=== PATIENT | female | born 1985 | race Caucasian/White ===

== ENCOUNTER 2017-12-12 15:23 | Emergency (ER) | payer OTHER, SELFPAY ==
[2017-12-12 15:32] VITALS: BP 152/92; PULSE 101; RESP 18; TEMP 37.2; O2SAT 99; BMI 33.7
--- NOTE | 2017-12-12 15:57 | ED.FEMALEGU ---
HPI - Female Genitourinary <COLLEEN Martinez - Last Filed: 12/12/17 22:44> General Chief complaint: Vaginal Bleeding Stated complaint: HEAVY VAG BLEEDING, DIZZY Time Seen by Provider: 12/12/17 15:56 History of Present Illness HPI Narrative: 32-year-old female here for complaint of having heavy vaginal bleeding consistently for the last 3 months. She was seen by her primary care provider for this month ago and was placed on a oral control pills jenny. She states that she has a copper IUD that has been in place for the last 3 years. She was also seen down in the emergency room in [place] where she states she had a normal ultrasound that showed good location of the IUD. She was treated with short course of methyl progesterone. She states that neither of the control tablets have helped her at all. She does report having increased bleeding over the last 5 days. She states she has had a couple of twinges of pain into her pelvic region over the past couple of days however no constant pain no cramping. She states she has passed a few clots over the past few days. She states that she is going through approximately 8 tampons a day. Complaint: vaginal bleeding Related Data Home Medications Medication Instructions Recorded Confirmed ibuprofen 400 mg PO Q4-6H PRN 12/12/17 12/12/17 medroxyprogesterone 5 mg PO DAILY 12/12/17 12/12/17 Previous Rx's Medication Instructions Recorded naproxen 500 mg PO BID #20 tab 12/12/17 doxycycline monohydrate 100 mg 100 mg PO .COMPLEX #22 cap 12/13/17 capsule norgestimate-ethinyl estradiol 1 tab PO DAILY #28 tab 12/13/17 0.18 mg/0.215mg/0.25mg-35 mcg(28)tablet Allergies Allergy/AdvReac Type Severity Reaction Status Date / Time No Known Drug Allergies Allergy Verified 12/12/17 15:38 Review of Systems <COLLEEN Martinez - Last Filed: 12/12/17 22:44> Constitutional Denies chills, Denies fever(s), Denies lethargy and Denies weakness Eyes Denies change in vision, Denies eye discharge, Denies irritation and Denies loss of vision ENT Ears, Nose, Mouth, and Throat: Denies change in voice, Denies neck pain and Denies sore throat Cardiovascular Denies chest pain, Denies irregular heart rhythm, Denies lightheadedness, Denies palpitations, Denies dyspnea, Denies dyspnea on exertion and Denies orthopnea Respiratory Denies cough, Denies dyspnea, Denies dyspnea on exertion and Denies wheezing Gastrointestinal Gastrointestinal: Denies abdominal pain, Denies change in bowel habits, Denies diarrhea, Denies nausea and Denies vomiting Genitourinary Reports abnormal vaginal bleeding Musculoskeletal Denies neck pain Integumentary/Breasts Denies pruritus, Denies erythema, Denies rash and Denies wounds Neurologic Denies confusion, Denies loss of vision and Denies weakness Psychiatric Denies anxiety, Denies confusion, Denies depression, Denies homicidal ideation and Denies suicidal ideation Endocrine Denies palpitations Hematologic/Lymphatic Denies easy bruising Allergic/Immunologic Denies wheezing Exam <COLLEEN Martinez - Last Filed: 12/12/17 22:44> Initial Vital Signs Initial Vital Signs: Vital Signs Temperature 98.9 F 12/12/17 15:32 Pulse Rate 101 H 12/12/17 15:32 Respiratory Rate 18 12/12/17 15:32 Blood Pressure 152/92 H 12/12/17 15:32 Pulse Oximetry 99 12/12/17 15:32 Const General: cooperative and well developed Nutritional Appearance: well nourished Orientation: alert, awake, oriented x3 and not confused HENMN Mouth: oral mucosae normal and moist mucous membranes Eyes Conjunctivae: conjunctivae normal Sclera: sclerae normal Pupils: PERRL EOM: EOM intact bilaterally Resp Effort & Inspection: normal respiratory effort, able to speak in complete sentences, no respiratory distress and no use of accessory muscles Auscultation: clear to auscultation bilaterally, no rales, no rhonchi and no wheezes Cardio Rate: regular rate Rhythm: regular rhythm Heart Sounds: no click, no gallops, no murmurs and no rubs External Female Exam: external appearance normal Speculum Exam - Vagina: normal appearance of the vagina, no foreign bodies, vaginal bleeding and no masses Speculum Exam - Cervix: closed cervix and abnormal cervical discharge bloody OB/External & Speculum: no foreign bodies and vaginal bleeding Skin General: no rashes or lesions noted, No jaundice and No petechiae Neuro General: alert, oriented x3, gait normal and no focal motor deficits Speech: speech normal <Gina Sheehan DO - Last Filed: 12/16/17 04:51> Initial Vital Signs Initial Vital Signs: Vital Signs Temperature 98.9 F 12/12/17 15:32 Pulse Rate 101 H 12/12/17 15:32 Respiratory Rate 18 12/12/17 15:32 Blood Pressure 152/92 H 12/12/17 15:32 Pulse Oximetry 99 12/12/17 15:32 Course <COLLEEN Martinez - Last Filed: 12/12/17 22:44> Orders Ordered: ED Orders 12/12/17 16:17 US pelvic complete Stat 12/12/17 16:28 Complete Blood Count AUTO DIFF Stat Comprehensive Metabolic Panel Stat 12/12/17 16:35 Urine Microscopic Stat 12/12/17 17:22 XR pelvis 1-2V Stat Vital Signs - 8 hr 12/12/17 15:32 12/12/17 18:15 Temperature 98.9 F Pulse Rate 101 H 103 H Respiratory Rate 18 20 Blood Pressure 152/92 H Blood Pressure [Left Arm] 141/67 H Pulse Oximetry 99 99 <Gina Sheehan DO - Last Filed: 12/16/17 04:51> Orders Ordered: ED Orders 12/12/17 16:17 US pelvic complete Stat 12/12/17 16:28 Complete Blood Count AUTO DIFF Stat Comprehensive Metabolic Panel Stat 12/12/17 16:35 Urine Microscopic Stat 12/12/17 17:22 XR pelvis 1-2V Stat Vital Signs - 8 hr 12/12/17 15:32 12/12/17 18:15 Temperature 98.9 F Pulse Rate 101 H 103 H Respiratory Rate 18 20 Blood Pressure 152/92 H Blood Pressure [Left Arm] 141/67 H Pulse Oximetry 99 99 MDM - Female Genitourinary <COLLEEN Martinez - Last Filed: 12/12/17 22:44> Lab Data Result diagrams: 12/12/17 16:28 12/12/17 16:28 Lab Results 12/12/17 12/12/17 12/12/17 Range/Units 16:28 16:28 16:35 WBC 7.9 (4.5-11.0) X10^3/uL RBC 4.00 (4.0-5.2) X10^6/uL Hgb 11.3 L (12.0-16.0) g/dL Hct 33.8 L (36-46) % MCV 84.6 (80-100) fL MCH 28.3 (26-34) PG MCHC 33.4 (30-36) % RDW 14.6 (11.6-14.8) % Plt Count 244 (150-400) X10^3/uL Neut % (Auto) 67.0 (50-75) % Lymph % (Auto) 25.0 (25-40) % [place] % (Auto) 6.4 (3-14) % Eos % (Auto) 1.1 L (2-4) % Baso % (Auto) 0.5 (0-2) % Neut # (Auto) 5300 (0789-3648) /uL Sodium 139 (137-145) mmol/L Potassium 3.9 (3.4-5.1) mmol/L Chloride 106 (98-107) mmol/L Carbon Dioxide 23 (22-32) mmol/L BUN 14 (7-17) mg/dL Creatinine 0.60 (0.52-1.04) mg/dL Estimated GFR > 60.0 (>60) mL/min BUN/Creatinine Ratio 23.3 H (6-22) Glucose 108 H (70-100) mg/dL Calcium 9.1 (8.4-10.2) mg/dL Total Bilirubin 0.2 (0.2-1.3) mg/dL AST 15 (14-36) IU/L ALT 18 (9-52) IU/L Alkaline Phosphatase 65 (38-126) U/L Total Protein 7.0 (6.3-8.2) g/dL Albumin 4.1 (3.5-5.0) g/dL Globulin 2.9 (1.7-4.1) g/dL Albumin/Globulin Ratio 1.4 (1.0-2.8) Urine RBC 1-5/hpf (0-5/HPF) Urine WBC None seen (0-5/HPF) Ur Squamous Epith Cells 0-1 /hpf Urine Bacteria None seen (None) Ur Culture Indicated? Cult not indicated Micro UA Comment Not Reportable Imaging Data pelvic US: Radiologist's impression: PROCEDURE: US PELVIC COMPLETE INDICATIONS: Three months of vaginal bleeding. ? IUD location. TECHNIQUE: Real-time scanning was performed of the pelvic organs, with image documentation. Additional endovaginal scanning was necessary due to incomplete visualization of the adnexal and endometrial structures by transabdominal scanning. COMPARISON: None. FINDINGS: Transabdominal scanning: Limited scanning through the kidneys shows no hydronephrosis. No pathologic free abdominal or pelvic fluid. Endovaginal scanning: Uterus: Uterus is anteverted measuring 9.1 x 4.7 x 5.8 cm. The endometrium measures 6 mm in combined thickness. Ovaries: Ovaries are seen on transabdominal probe orally and demonstrated normal in size and echotexture. The right ovary measures 3.8 x 2.8 x 2.6 cm. Left ovary measures 3.0 x 1.7 x 2.5 cm. IMPRESSION: 1. No IUD is identified on ultrasound. 2. No ultrasound findings to explain vaginal bleeding. 3. Normal ovaries. Dictated by: Candy Goodson M.D. on 12/12/2017 at 17:25 Approved by: Candy Goodson M.D. on 12/12/2017 at 17:28 MDM Narrative Medical decision making narrative: Pelvic ultrasound was obtained and was negative for any acute findings. No IUD was seen on ultrasound. On pelvic exam no IUD strings were appreciated. Slight amount of bleeding was seen on pelvic exam. CBC shows slight anemia on her H&H otherwise were unremarkable. Urinalysis was negative for urinary tract infection or . Pelvis x-ray was obtained and iud was unable to be seen on the x-ray. Discussed case with Dr. Chaves weigh tank operator whose office will follow up with her in the next few days. Patient to call the office tomorrow morning to schedule follow-up appointment. Use naproxen for discomfort and also to help with bleeding. Return emergency room for any worsening symptoms. <Gina Sheehan, DO - Last Filed: 12/16/17 04:51> Lab Data Lab Results 12/12/17 12/12/17 12/12/17 Range/Units 16:28 16:28 16:35 WBC 7.9 (4.5-11.0) X10^3/uL RBC 4.00 (4.0-5.2) X10^6/uL Hgb 11.3 L (12.0-16.0) g/dL Hct 33.8 L (36-46) % MCV 84.6 (80-100) fL MCH 28.3 (26-34) PG MCHC 33.4 (30-36) % RDW 14.6 (11.6-14.8) % Plt Count 244 (150-400) X10^3/uL Neut % (Auto) 67.0 (50-75) % Lymph % (Auto) 25.0 (25-40) % [place] % (Auto) 6.4 (3-14) % Eos % (Auto) 1.1 L (2-4) % Baso % (Auto) 0.5 (0-2) % Neut # (Auto) 5300 (8401-0585) /uL Sodium 139 (137-145) mmol/L Potassium 3.9 (3.4-5.1) mmol/L Chloride 106 (98-107) mmol/L Carbon Dioxide 23 (22-32) mmol/L BUN 14 (7-17) mg/dL Creatinine 0.60 (0.52-1.04) mg/dL Estimated GFR > 60.0 (>60) mL/min BUN/Creatinine Ratio 23.3 H (6-22) Glucose 108 H (70-100) mg/dL Calcium 9.1 (8.4-10.2) mg/dL Total Bilirubin 0.2 (0.2-1.3) mg/dL AST 15 (14-36) IU/L ALT 18 (9-52) IU/L Alkaline Phosphatase 65 (38-126) U/L Total Protein 7.0 (6.3-8.2) g/dL Albumin 4.1 (3.5-5.0) g/dL Globulin 2.9 (1.7-4.1) g/dL Albumin/Globulin Ratio 1.4 (1.0-2.8) Urine RBC 1-5/hpf (0-5/HPF) Urine WBC None seen (0-5/HPF) Ur Squamous Epith Cells 0-1 /hpf Urine Bacteria None seen (None) Ur Culture Indicated? Cult not indicated Micro UA Comment Not Reportable Discharge Plan Departure Patient Disposition: Home, Self-Care Clinical Impression: Vaginal bleeding Discharge Date/Time: 12/12/17 18:43 Interventions: ED Discharge Assessment Last Done: 12/12/17 18:43 Instructions: DI for Vaginal Bleeding Activity Restrictions/Additional Instructions: Ultrasound shows no IUD and no acute findings. Was unable to see the string for the IUD today indicating that IUD has came out of the uterus over the past few days causing increased amount of bleeding. Laboratory results shows slight anemia otherwise were unremarkable. Follow up with OBGYN call the number provided tomorrow morning to schedule follow-up appointment here in the couple of days. Use naproxen as needed for discomfort and also to help with bleeding. For any worsening symptoms return to the emergency room. Prescriptions: New naproxen 250 mg tablet 500 mg PO BID Qty: 20 RF: 0 No Action doxycycline monohydrate 100 mg capsule 100 mg PO .COMPLEX Qty: 22 RF: 0 norgestimate-ethinyl estradiol [Ortho Tri-Cyclen (28)] 0.18/0.215/0.25 mg-35 mcg (28) tablet 1 tab PO DAILY Qty: 28 RF: 6 ibuprofen 200 mg Tablet 400 mg PO Q4-6H PRN (Reason: Abdominal Pain) RF: 0 medroxyprogesterone 5 mg Tablet 5 mg PO DAILY RF: 0 Referrals: Mike Reis MD [Physician] - <Gina Sheehan DO - Last Filed: 12/16/17 04:51> Cosign ED Attending Cosignature Attestation: I was immediately available in the department for consultation. Documentation has been reviewed. I agree with assessment and plan.
--- NOTE | 2017-12-12 16:17 | DI.US.S_ITS ---
PROCEDURE: US PELVIC COMPLETE INDICATIONS: Three months of vaginal bleeding. ? IUD location. TECHNIQUE: Real-time scanning was performed of the pelvic organs, with image documentation. Additional endovaginal scanning was necessary due to incomplete visualization of the adnexal and endometrial structures by transabdominal scanning. COMPARISON: None. FINDINGS: Transabdominal scanning: Limited scanning through the kidneys shows no hydronephrosis. No pathologic free abdominal or pelvic fluid. Endovaginal scanning: Uterus: Uterus is anteverted measuring 9.1 x 4.7 x 5.8 cm. The endometrium measures 6 mm in combined thickness. Ovaries: Ovaries are seen on transabdominal probe orally and demonstrated normal in size and echotexture. The right ovary measures 3.8 x 2.8 x 2.6 cm. Left ovary measures 3.0 x 1.7 x 2.5 cm. IMPRESSION: 1. No IUD is identified on ultrasound. 2. No ultrasound findings to explain vaginal bleeding. 3. Normal ovaries. Dictated by: Candy Goodson M.D. on 12/12/2017 at 17:25 Approved by: Candy Goodson M.D. on 12/12/2017 at 17:28
--- NOTE | 2017-12-12 16:25 | PC.NURSE ---
Pt has been being worked up for heavy bleeding for months. Today pt has been dizzy and states that her bleeding is increasing. Pt is going through super tampons in a short amount of time. Pt has used 4 today and too many to count yersterday. Pt concerned that she is bleeding and has a 23 hour flight next week.
[2017-12-12 16:51] LABS: Add Manual Diff / Slide Review NO; Basophils Percent Auto 0.5 % (0-2); Eosinophils Percent Auto 1.1 % (2-4); Hematocrit 33.8 % (36-46); Hemoglobin 11.3 g/dL (12.0-16.0); Mean Corpuscular HGB Conc 33.4 % (30-36); Mean Corpuscular Hemoglobin 28.3 PG (26-34); Mean Corpuscular Volume 84.6 fL (80-100); Monocytes Percent Auto 6.4 % (3-14); Neutrophils Absolute Auto 5300 /uL (3000-5900); Platelet Count 244 X10^3/uL (150-400); Red Cell Distribution Width 14.6 % (11.6-14.8); White Blood Cell Count 7.9 X10^3/uL (4.5-11.0)
[2017-12-12 17:00] LABS: Bacteria Urine None Seen; WBC Urine None Seen (0-5/HPF)
[2017-12-12 17:02] LABS: Alanine Aminotransferase 18 IU/L (9-52); Albumin 4.1 g/dL (3.5-5.0); Albumin Globulin Ratio 1.4 (1.0-2.8); Alkaline Phosphatase 65 U/L (38-126); Aspartate Aminotransferase 15 IU/L (14-36); BUN Creatinine Ratio 23.3 (6-22); Bilirubin Total 0.2 mg/dL (0.2-1.3); Blood Urea Nitrogen 14 mg/dL (7-17); Calcium 9.1 mg/dL (8.4-10.2); Carbon Dioxide 23 mmol/L (22-32); Chloride 106 mmol/L (98-107); Estimated Glomerular Filt Rate > 60.0 mL/min (>60); Globulin 2.9 g/dL (1.7-4.1); Glucose 108 mg/dL (70-100); HEMOLYSIS < 15 (0-50); Potassium 3.9 mmol/L (3.4-5.1); Sodium 139 mmol/L (137-145)
[2017-12-12 17:13] LABS: Culture Indicated Urine Cult Not Indicated; RBC Urine 1-5/HPF (0-5/HPF); Squamous Epithelial Cell Urine 0-1 /HPF
--- NOTE | 2017-12-12 17:22 | DI.RAD.S_ITS ---
PROCEDURE: XR PELVIS 1-2V INDICATIONS: IUD strings not seen on exam or on ultrasound TECHNIQUE: 1 view(s) of the pelvis acquired. COMPARISON: None. FINDINGS: Bones: No fractures or dislocations. No suspicious bony lesions. Soft tissues: Visualized bowel gas pattern is normal. No suspicious soft tissue calcifications. No IUD is present. IMPRESSION: No IUD. Dictated by: Candy Goodson M.D. on 12/12/2017 at 19:09 Approved by: Candy Goodson M.D. on 12/12/2017 at 19:09
[2017-12-12 18:15] VITALS: BP 141/67; PULSE 103; RESP 20; O2SAT 99
== END 2017-12-12 18:43 | disposition home or self-care (01) ==
PROVIDERS: Emergency Provider Nurse Practitioner Family
DX: N93.9 Abnormal uterine and vaginal bleeding, unspecified (principal)
CPT/HCPCS: 36415; 72170; 76830; 76856; 80053; 81003; 81015; 81025; 85025; 99282; 99284

== ENCOUNTER 2018-12-18 11:24 | Emergency (ER) | payer OTHER, SELFPAY ==
[2018-12-18 11:25] VITALS: BP 153/94; PULSE 92; RESP 18; TEMP 36.7; O2SAT 96; BMI 35.2
[2018-12-18 11:43] VITALS: BP 153/94; PULSE 92; RESP 18; TEMP 36.7; O2SAT 96
--- NOTE | 2018-12-18 11:56 | ED.PREGNANCY ---
HPI - <DENICE Castillo - Last Filed: 12/18/18 13:49> General Chief complaint: OB/Uterine Contractions Stated complaint: flying [place] & needs confirm. of preg Time Seen by Provider: 12/18/18 11:37 Source: patient and family Mode of arrival: ambulatory Limitations: no limitations History of Present Illness HPI Narrative: The patient is a 33-year-old female nonsmoker with history of IUD removal who presents with a chief complaint of requesting confirmation of . She states her last menstrual period was on October 11. She states she spotted a 2 days last month. She denies any abdominal pain, nausea vomiting diarrhea. She denies any vaginal discharge. She states she is only here to help find out how far along she is so that she can have appropriate follow-up in the [facility]. She states she is unable to be seen by the providers here as all of her providers are in the [facility]. Related Data Home Medications Medication Instructions Recorded Confirmed multivitamin 1 tab PO DAILY 12/18/18 12/18/18 Allergies Allergy/AdvReac Type Severity Reaction Status Date / Time latex Allergy Unknown Verified 12/18/18 12:18 Review of Systems <DENICE Castillo - Last Filed: 12/18/18 13:49> Review of Systems GENERAL: Denies chills, fatigue, malaise, fever, sweats. HEENT: Denies sinus pain, ear pain, sore throat, difficulty swallowing, dizziness. RESPIRATORY: Denies dyspnea, cough, wheezing, hemoptysis, sputum. CARDIOVASCULAR: Denies chest pain, palpitations, orthopnea, edema, GASTROINTESTINAL: See HPI : Denies dysuria, frequency, incontinence, hematuria, urinary retention. MUSCULOSKELETAL: denies weakness, joint pain, or bony pain SKIN: Denies rash, skin lesions, or other NEUROLOGIC: Denies weakness, headache, numbness, change in speech, confusion, seizures, incoordination. PSYCHIATRIC: No concerning psychosocial issues. 12 point review of systems is negative except for those stated above Exam <DENICE Castillo - Last Filed: 12/18/18 13:49> Narrative Exam Narrative: GENERAL: Obese female no acute distress, appears anxious HEAD: Atraumatic. Normocephalic. No temporal or scalp tenderness. EYES: Pupils equal round and reactive. Extraocular motions intact. No scleral icterus. No injection or drainage. ENT: Nose without bleeding, purulent drainage or septal hematoma. Throat without erythema, tonsillar hypertrophy or exudate. Uvula midline. Airway patent. NECK: Trachea midline. No JVD or lymphadenopathy. Supple, nontender, no meningeal signs. CARDIOVASCULAR: Regular rate and rhythm without murmurs, gallops, or rubs. RESPIRATORY: Clear to auscultation. Breath sounds equal bilaterally. No wheezes, rales, or rhonchi. GASTROINTESTINAL: Abdomen soft, non-tender, nondistended. No hepato-splenomegaly, or palpable masses. No guarding. EXTREMITIES: No clubbing, cyanosis, or edema. No joint tenderness, effusion, or edema noted. BACK: Nontender without deformity or crepitance. No flank tenderness. NEURO: AOx3. SKIN: No rash or erythema. Initial Vital Signs Initial Vital Signs: Vital Signs Temperature 98.1 F 12/18/18 11:25 Pulse Rate 92 H 12/18/18 11:25 Respiratory Rate 18 12/18/18 11:25 Blood Pressure 153/94 H 12/18/18 11:25 Pulse Oximetry 96 12/18/18 11:25 <Gina Sheehan DO - Last Filed: 12/19/18 07:20> Initial Vital Signs Initial Vital Signs: Vital Signs Temperature 98.1 F 12/18/18 11:25 Pulse Rate 92 H 12/18/18 11:25 Respiratory Rate 18 12/18/18 11:25 Blood Pressure 153/94 H 12/18/18 11:25 Pulse Oximetry 96 12/18/18 11:25 Course <SANDY Castillo - Last Filed: 12/18/18 13:49> Orders Ordered: ED Orders 12/18/18 12:02 Beta HCG, Quant [HCG Quantitative] Stat Vital Signs - 8 hr 12/18/18 11:25 12/18/18 11:43 Temperature 98.1 F 98.1 F Pulse Rate 92 H 92 H Respiratory Rate 18 18 Blood Pressure 153/94 H Blood Pressure [Left Arm] 153/94 H Pulse Oximetry 96 96 <Gina Sheehan DO - Last Filed: 12/19/18 07:20> Orders Ordered: ED Orders 12/18/18 12:02 Beta HCG, Quant [HCG Quantitative] Stat Vital Signs - 8 hr 12/18/18 11:25 12/18/18 11:43 Temperature 98.1 F 98.1 F Pulse Rate 92 H 92 H Respiratory Rate 18 18 Blood Pressure 153/94 H Blood Pressure [Left Arm] 153/94 H Pulse Oximetry 96 96 MDM - OB/Uterine Contractions <MEENU Castillo-BC - Last Filed: 12/18/18 13:49> Lab Data Lab Results 12/18/18 Range/Units 12:02 HCG, Quant 28058 mIU/mL Urine Dip Bedside Urine Glucose Negative Bedside Urine Bilirubin - Negative Bedside Urine Ketone - Negative Urine Specific [place] 1.015 Bedside Urine Occult Blood - Negative Bedside Urine pH 6.0 Bedside Urine Protein - Negative Bedside Urine Urobilinogen - Negative Bedside Urine Nitrite - Negative Bedside Urine Leukocytes - Negative Esterase MDM Narrative Medical decision making narrative: The patient is a 33-year-old female requesting testing and wanting to know how far along she is. She states she needs to know this for the , but states that her providers are unable to arrange this testing for her. She comes to the emergency department without physical complaint, denying abdominal pain and vaginal discharge etc. Her last menstrual period was October 11, which would make her approximately 9 weeks and days . Her beta HCG is elevated. I discussed at length that she is , likely in the 9 week range given her last menstrual cycle. Encouraged follow-up with her primary care provider as well as primary care OB. Discussed starting vitamins, avoiding alcohol, and patient states ?I have been before I know what to do <Gina Sheehan DO - Last Filed: 12/19/18 07:20> Lab Data Lab Results 12/18/18 Range/Units 12:02 HCG, Quant 59724 mIU/mL Urine Dip Bedside Urine Glucose Negative Bedside Urine Bilirubin - Negative Bedside Urine Ketone - Negative Urine Specific [place] 1.015 Bedside Urine Occult Blood - Negative Bedside Urine pH 6.0 Bedside Urine Protein - Negative Bedside Urine Urobilinogen - Negative Bedside Urine Nitrite - Negative Bedside Urine Leukocytes - Negative Esterase Discharge Plan Departure Patient Disposition: Home Clinical Impression: Qualifiers: Weeks of gestation: unspecified Qualified Code(s): Z34.90 - Encounter for supervision of normal , unspecified, unspecified trimester Discharge Date/Time: 12/18/18 14:00 Interventions: ED Discharge Assessment Last Done: 12/18/18 13:58 Instructions: Common Discomforts and Bodily Changes During , DI for -- Discomforts and Remedies Activity Restrictions/Additional Instructions: Today your urine showed no signs [place] infection. [place] [address] Given your beta HCG elevation and last menstrual period, it is likely that you are about 9 weeks . Please follow up with primary care provider. Please come back to the emergency department for any acute concerns such as severe abdominal pain, vaginal bleeding etc. I suggest starting a vitamin, starting to avoid alcohol etc. Prescriptions: No Action multivitamin Tablet 1 tab PO DAILY RF: 0 <Gina Sheehan DO - Last Filed: 12/19/18 07:20> Cosign ED Attending Caitlynature Attestation: I was immediately available in the department for consultation. Documentation has been reviewed. I agree with assessment and plan.
--- NOTE | 2018-12-18 12:00 | ED_ITS ---
HPI - <DENICE Castillo - Last Filed: 12/18/18 13:49> General Chief complaint: OB/Uterine Contractions Stated complaint[place] & needs confirm. of preg Time Seen by Provider: 12/18/18 11:37 Source: patient and family Mode of arrival: ambulatory Limitations: no limitations History of Present Illness HPI Narrative: The patient is a 33-year-old female nonsmoker with history of IUD removal who presents with a chief complaint of requesting confirmation of . She states her last menstrual period was on October 11. She states she spotted a 2 days last month. She denies any abdominal pain, nausea vomiting diarrhea. She denies any vaginal discharge. She states she is only here to help find out how far along she is so that she can have appropriate follow-up in the [facility]. She states she is unable to be seen by the providers here as all of her providers are in the [facility]. Related Data Home Medications Medication Instructions Recorded Confirmed multivitamin 1 tab PO DAILY 12/18/18 12/18/18 Allergies Allergy/AdvReac Type Severity Reaction Status Date / Time latex Allergy Unknown Verified 12/18/18 12:18 Review of Systems <DENICE Castillo - Last Filed: 12/18/18 13:49> Review of Systems GENERAL: Denies chills, fatigue, malaise, fever, sweats. HEENT: Denies sinus pain, ear pain, sore throat, difficulty swallowing, dizziness. RESPIRATORY: Denies dyspnea, cough, wheezing, hemoptysis, sputum. CARDIOVASCULAR: Denies chest pain, palpitations, orthopnea, edema, GASTROINTESTINAL: See HPI : Denies dysuria, frequency, incontinence, hematuria, urinary retention. MUSCULOSKELETAL: denies weakness, joint pain, or bony pain SKIN: Denies rash, skin lesions, or other NEUROLOGIC: Denies weakness, headache, numbness, change in speech, confusion, seizures, incoordination. PSYCHIATRIC: No concerning psychosocial issues. 12 point review of systems is negative except for those stated above Exam <DENICE Castillo - Last Filed: 12/18/18 13:49> Narrative Exam Narrative: GENERAL: Obese female no acute distress, appears anxious HEAD: Atraumatic. Normocephalic. No temporal or scalp tenderness. EYES: Pupils equal round and reactive. Extraocular motions intact. No scleral icterus. No injection or drainage. ENT: Nose without bleeding, purulent drainage or septal hematoma. Throat without erythema, tonsillar hypertrophy or exudate. Uvula midline. Airway patent. NECK: Trachea midline. No JVD or lymphadenopathy. Supple, nontender, no meningeal signs. CARDIOVASCULAR: Regular rate and rhythm without murmurs, gallops, or rubs. RESPIRATORY: Clear to auscultation. Breath sounds equal bilaterally. No wheezes, rales, or rhonchi. GASTROINTESTINAL: Abdomen soft, non-tender, nondistended. No hepato- splenomegaly, or palpable masses. No guarding. EXTREMITIES: No clubbing, cyanosis, or edema. No joint tenderness, effusion, or edema noted. BACK: Nontender without deformity or crepitance. No flank tenderness. NEURO: AOx3. SKIN: No rash or erythema. Initial Vital Signs Initial Vital Signs: Vital Signs Temperature 98.1 F 12/18/18 11:25 Pulse Rate 92 H 12/18/18 11:25 Respiratory Rate 18 12/18/18 11:25 Blood Pressure 153/94 H 12/18/18 11:25 Pulse Oximetry 96 12/18/18 11:25 <Gina Sheehan DO - Last Filed: 12/19/18 07:20> Initial Vital Signs Initial Vital Signs: Vital Signs Temperature 98.1 F 12/18/18 11:25 Pulse Rate 92 H 12/18/18 11:25 Respiratory Rate 18 12/18/18 11:25 Blood Pressure 153/94 H 12/18/18 11:25 Pulse Oximetry 96 12/18/18 11:25 Course <SANDY Castillo - Last Filed: 12/18/18 13:49> Orders Ordered: ED Orders 12/18/18 12:02 Beta HCG, Quant [HCG Quantitative] Stat Vital Signs - 8 hr 12/18/18 11:25 12/18/18 11:43 Temperature 98.1 F 98.1 F Pulse Rate 92 H 92 H Respiratory Rate 18 18 Blood Pressure 153/94 H Blood Pressure [Left Arm] 153/94 H Pulse Oximetry 96 96 <Gina Sheehan DO - Last Filed: 12/19/18 07:20> Orders Ordered: ED Orders 12/18/18 12:02 Beta HCG, Quant [HCG Quantitative] Stat Vital Signs - 8 hr 12/18/18 11:25 12/18/18 11:43 Temperature 98.1 F 98.1 F Pulse Rate 92 H 92 H Respiratory Rate 18 18 Blood Pressure 153/94 H Blood Pressure [Left Arm] 153/94 H Pulse Oximetry 96 96 MDM - OB/Uterine Contractions <MEENU Castlilo-BC - Last Filed: 12/18/18 13:49> Lab Data Lab Results 12/18/18 Range/Units 12:02 HCG, Quant 90642 mIU/mL Urine Dip Bedside Urine Glucose Negative Bedside Urine Bilirubin - Negative Bedside Urine Ketone - Negative Urine Specific Gill 1.015 Bedside Urine Occult Blood - Negative Bedside Urine pH 6.0 Bedside Urine Protein - Negative Bedside Urine Urobilinogen - Negative Bedside Urine Nitrite - Negative Bedside Urine Leukocytes - Negative Esterase MDM Narrative Medical decision making narrative: The patient is a 33-year-old female requesting testing and wanting to know how far along she is. She states she needs to know this for the , but states that her providers are unable to arrange this testing for her. She comes to the emergency department without physical complaint, denying abdominal pain and vaginal discharge etc. Her last menstrual period was October 11, which would make her approximately 9 weeks and days . Her beta HCG is elevated. I discussed at length that she is , likely in the 9 week range given her last menstrual cycle. Encouraged follow-up with her primary care provider as well as primary care OB. Discussed starting vitamins, avoiding alcohol, and patient states ?I have been before I know what to do <Gina Sheehan DO - Last Filed: 12/19/18 07:20> Lab Data Lab Results 12/18/18 Range/Units 12:02 HCG, Quant 81422 mIU/mL Urine Dip Bedside Urine Glucose Negative Bedside Urine Bilirubin - Negative Bedside Urine Ketone - Negative Urine Specific Gill 1.015 Bedside Urine Occult Blood - Negative Bedside Urine pH 6.0 Bedside Urine Protein - Negative Bedside Urine Urobilinogen - Negative Bedside Urine Nitrite - Negative Bedside Urine Leukocytes - Negative Esterase Discharge Plan Departure Patient Disposition: Home Clinical Impression: Qualifiers: Weeks of gestation: unspecified Qualified Code(s): Z34.90 - Encounter for supervision of normal , unspecified, unspecified trimester Discharge Date/Time: 12/18/18 14:00 Interventions: ED Discharge Assessment Last Done: 12/18/18 13:58 Instructions: Common Discomforts and Bodily Changes During , DI for -- Discomforts and Remedies Activity Restrictions/Additional Instructions: Today your urine showed no signs [place] infection. [place] [id number] Given your beta HCG elevation and last menstrual period, it is likely that you are about 9 weeks . Please follow up with primary care provider. Please come back to the emergency department for any acute concerns such as severe abdominal pain, vaginal bleeding etc. I suggest starting a vitamin, starting to avoid alcohol etc. Prescriptions: No Action multivitamin Tablet 1 tab PO DAILY RF: 0 <Gina Sheehan DO - Last Filed: 12/19/18 07:20> Cosign ED Attending Caitlynature Attestation: I was immediately available in the department for consultation. Documentation has been reviewed. I agree with assessment and plan.
[2018-12-18 13:06] LABS: HCG Quantitative /Beta subunit 24489 mIU/mL
[2018-12-18 13:58] VITALS: BP 153/82; PULSE 90; RESP 18; TEMP 37; O2SAT 98
== END 2018-12-18 14:00 | disposition home or self-care (01) ==
PROVIDERS: Emergency Provider Nurse Practitioner Family
DX: N91.2 Amenorrhea, unspecified (principal); Z33.1 Pregnant state, incidental
CPT/HCPCS: 36415; 81003; 84702; 99282